=== PATIENT | male | born 1985 | race African-American/Black ===

== ENCOUNTER 2016-12-02 11:24 | Emergency (ER) | payer OTHER ==
[~2016-12-02] VITALS: Wt 103.0 kg
[~2016-12-02 11:24] MED LIST: CITA20TA11 PO; RISP1TAB3 PO
[2016-12-02] MEDS ORDERED: IBUP-1542 PO (15:01)
[2016-12-02] MEDS ORDERED: ACYC800T57 PO (15:01)
--- NOTE | 2016-12-02 15:08 | ERD ---
ER Documentation Chief Complaint Date/Time DATE: 12/02/16 TIME: 15:06 Chief Complaint mouth sores since last night. no distress. no fevers. HPI This is a 31-year-old male presents to the ER with mouth sores that occurred last night. Patient has gotten cold sores in the past however his lip is now swollen. Patient denies any difficulty in breathing, swallowing. He denies any rashes. He denies any fevers or chills. He denies any discharge from the area. ROS 12 point review of systems was done, all negative except per HPI. Medications Home Meds Active Scripts Ibuprofen* (Motrin*) 600 Mg Tab, 600 MG PO Q6, #30 TAB Prov:NAVI JADE 12/02/16 Acyclovir* (Zovirax*) 800 Mg Tablet, 800 MG PO 5 TIMES DAILY for 7 Days, TAB Prov:NAVI JADE 12/02/16 Citalopram Hydrobromide* (Celexa*) 20 Mg Tablet, 20 MG PO DAILY, #30 TAB Prov:MAREN DALEY. 05/31/15 Risperidone* (Risperidone*) 1 Mg Tablet, 1 MG PO DAILY, #20 TAB Prov:MAREN DALEY S. 05/31/15 PMhx/Soc History of Surgery: Yes (APPENDECTOMY. ) Anesthesia Reaction: No Hx Neurological Disorder: No Hx Respiratory Disorders: No Hx Cardiac Disorders: No Hx Psychiatric Problems: Yes (BIPOLAR? PT SAYS HE WANTS TO HURT HIMSELF. ) Hx Miscellaneous Medical Probl: No Hx Alcohol Use: Yes Hx Substance Use: Yes Hx Tobacco Use: Yes Physical Exam Vitals Vital Signs Date Time Temp Pulse Resp B/P Pulse Ox O2 Delivery O2 Flow Rate FiO2 12/02/16 11:53 98.8 75 20 126/72 98 Physical Exam GENERAL: The patient is well developed and appropriate for usual state of health , in no apparent distress. HEENT: Atraumatic. 2 vesicular lesion on the upper lip, swelling to the area. Uvular deviation no kissing tonsils. No eye swelling no tongue swelling. No discharge. CHEST: Clear to auscultation bilaterally. There are no rales, wheezes or rhonchi. HEART: Regular rate and rhythm. No murmurs, clicks, rubs or gallops. NEURO: Alert and oriented. Procedures/MDM This is a 31-year-old male presents to the ER with herpes outbreak on his lips. At this time patient will be sent home with acyclovir and with ibuprofen. I do not believe that he has an infection as there is no discharge and he is afebrile and well-appearing. Patient does not have any difficulty in breathing and is on any respiratory distress. His well-appearing. He is to follow-up with his primary care doctor within 1-2 days or return to ER sooner symptoms worsen. My medical decision making was shared with the patient he understands and agrees with plan. Departure Diagnosis: Primary Impression: HSV-1 (herpes simplex virus 1) infection Condition: Stable Patient Instructions: Herpes Labialis, Hsv: Type I Additional Instructions: Call your primary care doctor TOMORROW for an appointment during the next 1-2 days.See the doctor sooner or return here if your condition worsens before your appointment time. NAVI JADE Dec 02, 2016 15:08
== END 2016-12-02 15:03 | disposition home or self-care (01) ==
LOC: E/R 11:24
DX: B00.9 Herpesviral infection, unspecified (principal); Z87.891 Personal history of nicotine dependence
CPT/HCPCS: 99283

== ENCOUNTER 2016-12-18 12:09 | Emergency (ER) | payer OTHER ==
[~2016-12-18] VITALS: Wt 101.0 kg
[~2016-12-18 12:09] MED LIST changes: +ACYC800T57 PO; +IBUP-1542 PO
[2016-12-18 12:12] VITALS: Wt 101.0 kg
[2016-12-18] MEDS ORDERED: IBUP-1542 PO (12:58)
[2016-12-18] MEDS ORDERED: ACYC800T57 PO (12:58)
--- NOTE | 2016-12-18 13:06 | ERD ---
ER Documentation Chief Complaint Date/Time DATE: 12/18/16 TIME: 12:59 Chief Complaint MOUTH SORES X 1 DAY HPI This is a 31-year-old male who presents to the emergency department today for mouth sores that started today. Patient states he was seen here a couple weeks ago and was given medication but he only took 3 days worth and then stopped. States he took 4 of those pills today. Denies any fevers or chills. States he has had this in the past. ROS All systems reviewed and are negative except as per history of present illness. Medications Home Meds Active Scripts Ibuprofen* (Motrin*) 600 Mg Tab, 600 MG PO Q6, #30 TAB Prov:CLIFF HULL-C 12/18/16 Acyclovir* (Zovirax*) 800 Mg Tablet, 800 MG PO 5 TIMES DAILY for 7 Days, TAB Prov:CLIFF HULL PA-C 12/18/16 Ibuprofen* (Motrin*) 600 Mg Tab, 600 MG PO Q6, #30 TAB Prov:KALIENAVI C 12/02/16 Acyclovir* (Zovirax*) 800 Mg Tablet, 800 MG PO 5 TIMES DAILY for 7 Days, TAB Prov:KALIENAVI C 12/02/16 Citalopram Hydrobromide* (Celexa*) 20 Mg Tablet, 20 MG PO DAILY, #30 TAB Prov:MAREN DALEY S. 05/31/15 Risperidone* (Risperidone*) 1 Mg Tablet, 1 MG PO DAILY, #20 TAB Prov:MAREN DALEY S. 05/31/15 PMhx/Soc History of Surgery: Yes (APPENDECTOMY. ) Anesthesia Reaction: No Hx Neurological Disorder: No Hx Respiratory Disorders: No Hx Cardiac Disorders: No Hx Psychiatric Problems: Yes (BIPOLAR? PT SAYS HE WANTS TO HURT HIMSELF. ) Hx Miscellaneous Medical Probl: No Hx Alcohol Use: Yes Hx Substance Use: Yes Hx Tobacco Use: Yes Smoking Status: Current every day smoker Physical Exam Vitals Vital Signs Date Time Temp Pulse Resp B/P Pulse Ox O2 Delivery O2 Flow Rate FiO2 12/18/16 12:12 98.0 71 18 123/71 99 Physical Exam Const: No acute distress Head: Atraumatic Eyes: Normal Conjunctiva ENT: Normal External Ears, Nose mouth with evidence of small vesicles on the corner of the right upper lip and corner of the left lower lip.. No tonsillar exudate. No erythema. Neck: Full range of motion..~ No meningismus. Resp: Clear to auscultation bilaterally Cardio: Regular rate and rhythm, no murmurs Abd: Soft, non tender, non distended. Normal bowel sounds Skin: No petechiae or rashes Neur: Awake and alert Psych: Normal Mood and Affect Procedures/MDM This a 31-year-old male who presents to the emergency department today complaining of mouth sores that started this morning. Patient was seen here on December 02 and was given acyclovir and ibuprofen for likely HSV-1. Patient did not finish his medication course and started taking it again today. Patient also is no longer taking his bipolar medications as he did not like the way it made him feel. On physical exam patient does have some vesicular lesions on his upper and lower lip. Patient symptoms at this time was consistent with HSV-1. I have explained to the patient that I will give him a prescription for acyclovir however he needs to take the entire course. I instructed him not to stop taking it even if his symptoms improved. Patient was also instructed to follow- up with a primary care physician as he may benefit from prophylactic medication as he has been having these recent flares. Patient understood. Patient was also given a prescription for ibuprofen. Patient was also instructed to follow- up with his primary care physician for referral to psych so that his bipolar illness can be managed. Patient understood. Patient is afebrile and otherwise well-appearing. Low suspicion for sepsis, cellulitis, deep space infection, abscess At this time the patient is stable for discharge and outpatient management. Patient should follow up with their PCP in the next 1-2 days. They may return to the emergency department sooner for any persistent or worsening of symptoms. Patient understood and agreed with the plan. Departure Diagnosis: Primary Impression: Mouth sores Condition: Fair Patient Instructions: Herpes Labialis, Hsv: Type I Referrals: COMM[facility] CLINICS YOU HAVE RECEIVED A MEDICAL SCREENING EXAM AND THE RESULTS INDICATE THAT YOU DO NOT HAVE A CONDITION THAT REQUIRES URGENT TREATMENT IN THE EMERGENCY DEPARTMENT. FURTHER EVALUATION AND TREATMENT OF YOUR CONDITION CAN WAIT UNTIL YOU ARE SEEN IN YOUR DOCTORS OFFICE WITHIN THE NEXT 1-2 DAYS. IT IS YOUR RESPONSIBILITY TO MAKE AN APPOINTMENT FOR FOLOW-UP CARE. IF YOU HAVE A PRIMARY DOCTOR --you should call your primary doctor and schedule an appointment IF YOU DO NOT HAVE A PRIMARY DOCTOR YOU CAN CALL OUR PHYSICIAN REFERRAL HOTLINE AT IF YOU CAN NOT AFFORD TO SEE A PHYSICIAN YOU CAN CHOSE FROM THE FOLLOWING [facility] [address] [facility] [address] [facility] [facility] [address] [facility] [address] [facility]. [facility] [address] [facility]. [facility]. [address] Additional Instructions: Call your primary care doctor TOMORROW for an appointment during the next 1-2 days.See the doctor sooner or return here if your condition worsens before your appointment time. Take acyclovir as prescribed and follow up with your primary care physician about taking medication prophylactically. Take the entire course. Take Motrin or Tylenol for pain CLIFF HULL PA-C Dec 18, 2016 13:06
== END 2016-12-18 13:06 | disposition home or self-care (01) ==
LOC: FTE 12:09
DX: K13.79 Other lesions of oral mucosa (principal); F17.210 Nicotine dependence, cigarettes, uncomplicated
CPT/HCPCS: 99283

== ENCOUNTER 2017-06-14 01:31 | Emergency (ER) | payer OTHER ==
[~2017-06-14] VITALS: Ht 182.9 cm; Wt 91.0 kg
[2017-06-14 01:41] VITALS: Ht 182.9 cm; Wt 91.0 kg
[2017-06-14] MEDS ORDERED: CEPH-443 PO (03:57)
[2017-06-14] MEDS ORDERED: ACYC800T57 PO (03:57)
[2017-06-14] MEDS ORDERED: IBUP-1542 PO (03:57)
--- NOTE | 2017-06-14 04:15 | ERD ---
ER Documentation Chief Complaint Date/Time DATE: 06/14/17 TIME: 04:10 Chief Complaint pt has cold sore x 3 hours, R knee pain and want rapid hiv test HPI 32-year-old male presents here in emergency department for a sore on the upper lip started tonight. Patient is quite of pain sharp pain 4/10 scale, is worse upon touching the area. Patient is also complaining of pain and some discharge and redness on abrasion of the right knee, injured and fell on the right knee one week ago, prescription the right knee, now it has an abrasion, is complaining of some pain, burning pain 4/10 scale, accompanied with redness around the area. Patient is able to move the joint of the right knee without any restriction. Patient did not take any medications for pain. Patient was inquired regarding HIV testing. Patient denies any new sexual partner, denies any genital issues. Patient denies any penile discharge. ROS All systems reviewed and are negative except as per history of present illness. Medications Home Meds Active Scripts Ibuprofen* (Motrin*) 600 Mg Tab, 600 MG PO Q6H Y for PAIN AND OR ELEVATED TEMP, #30 TAB Prov:KATINA FERNANDEZ NP 06/14/17 Cephalexin* (Keflex*) 500 Mg Capsule, 500 MG PO QID for 10 Days, CAP Prov:KATINA FERNANDEZ NP 06/14/17 Acyclovir* (Zovirax*) 800 Mg Tablet, 800 MG PO 5 TIMES DAILY for 7 Days, TAB Prov:KATINA FERNANDEZ NP 06/14/17 Ibuprofen* (Motrin*) 600 Mg Tab, 600 MG PO Q6, #30 TAB Prov:CLIFF HULL PA-C 12/18/16 Acyclovir* (Zovirax*) 800 Mg Tablet, 800 MG PO 5 TIMES DAILY for 7 Days, TAB Prov:CLIFF HULLC 12/18/16 Ibuprofen* (Motrin*) 600 Mg Tab, 600 MG PO Q6, #30 TAB Prov:KALIENAVI LITTLEJOHN C 12/02/16 Acyclovir* (Zovirax*) 800 Mg Tablet, 800 MG PO 5 TIMES DAILY for 7 Days, TAB Prov:KALIENAVI C 12/02/16 Citalopram Hydrobromide* (Celexa*) 20 Mg Tablet, 20 MG PO DAILY, #30 TAB Prov:MAREN DALEY. 05/31/15 Risperidone* (Risperidone*) 1 Mg Tablet, 1 MG PO DAILY, #20 TAB Prov:MAREN DALEY. 05/31/15 Allergies Allergies: Coded Allergies: metoclopramide (Verified Allergy, Unknown, neck spasms, 06/14/17) PMhx/Soc History of Surgery: Yes (APPENDECTOMY. ) Anesthesia Reaction: No Hx Neurological Disorder: No Hx Respiratory Disorders: No Hx Cardiac Disorders: No Hx Psychiatric Problems: Yes (BIPOLAR? PT SAYS HE WANTS TO HURT HIMSELF. ) Hx Miscellaneous Medical Probl: No Hx Alcohol Use: Yes Hx Substance Use: Yes Hx Tobacco Use: Yes FmHx Family History: No coronary disease, No diabetes, No other Physical Exam Vitals Vital Signs Date Time Temp Pulse Resp B/P Pulse Ox O2 Delivery O2 Flow Rate FiO2 06/14/17 01:41 98.3 74 16 136/88 96 Physical Exam GENERAL: The patient is well developed and appropriate for usual state of health, in no apparent distress. HEENT: Atraumatic. Ears: Normal tympanic membrane, no erythema or bulging. No ear canal swelling. No ear discharge. Nose: normal nasal turbinates, no erythema or swelling. Normal nasal discharge. Throat: oropharynx clear. No tonsillar swelling or tonsillar exudates. No lymphadenopathy.noted upper lip sore CHEST: Clear to auscultation bilaterally. There are no rales, wheezes or rhonchi. HEART: Regular rate and rhythm. No murmurs, clicks, rubs or gallops. No S3 or S4. ABDOMEN: Soft, nontender and nondistended. Good bowel sounds. No rebound or guarding. No gross peritonitis. No gross organomegaly or masses. No Vargas sign or McBurney point tenderness. BACK: No midline or flank tenderness. EXTREMITIES: Equal pulses bilaterally. There is no peripheral clubbing, cyanosis or edema. No focal swelling or erythema. Full range of motion. Grossly neurovascularly intact. NEURO: Alert and oriented. Cranial nerves 2-12 intact. Motor strength in all 4 extremities with 5/5 strength. Sensation grossly intact. Normal speech and gait. SKIN: abrasion noted on the right knee with some redness surrounding the area. There is no apparent rash or petechia. The skin is warm and dry. HEMATOLOGIC AND LYMPHATIC: There is no evidence of excessive bruising or lymphedema. No gross cervical, axillary, or inguinal lymphadenopathy. Procedures/MDM Medical decision making: Patient has a right infected knee abrasion. Patient does not have any symptoms of any abscess, patient is able to move the joint without any restrictions. X-rays of affected area not indicated at this time. Patient also has an upper lip sore/ulcer, most likely can be herpes, can be viral. No suspicion for any acute bacterial infection at this time. no symptoms his at this time. Patient was given for Keflex to help with the infection in the knee abrasion, acyclovir for the lip ulcer, patient was given ibuprofen for pain, patient was given resources.Patient want to have HIV testing. Patient was advised to return to emergency department for worsening symptoms. Disposition: Home. Stable. Departure Diagnosis: Primary Impression: Infected abrasion Additional Impression: Lip ulcer Condition: Stable Patient Instructions: Wound Care Referrals: [facility] YOU HAVE RECEIVED A MEDICAL SCREENING EXAM AND THE RESULTS INDICATE THAT YOU DO NOT HAVE A CONDITION THAT REQUIRES URGENT TREATMENT IN THE EMERGENCY DEPARTMENT. FURTHER EVALUATION AND TREATMENT OF YOUR CONDITION CAN WAIT UNTIL YOU ARE SEEN IN YOUR DOCTORS OFFICE WITHIN THE NEXT 1-2 DAYS. IT IS YOUR RESPONSIBILITY TO MAKE AN APPOINTMENT FOR FOLOW-UP CARE. IF YOU HAVE A PRIMARY DOCTOR --you should call your primary doctor and schedule an appointment IF YOU DO NOT HAVE A PRIMARY DOCTOR YOU CAN CALL OUR PHYSICIAN REFERRAL HOTLINE AT IF YOU CAN NOT AFFORD TO SEE A PHYSICIAN YOU CAN CHOSE FROM THE FOLLOWING [facility] CLINICS [facility] [address] [facility] [address] [facility] [address] [facility] [address] [facility] [address] [facility]. [facility]. [address] [facility]. [facility] YOU HAVE RECEIVED A MEDICAL SCREENING EXAM AND THE RESULTS INDICATE THAT YOU DO NOT HAVE A CONDITION THAT REQUIRES URGENT TREATMENT IN THE EMERGENCY DEPARTMENT. FURTHER EVALUATION AND TREATMENT OF YOUR CONDITION CAN WAIT UNTIL YOU ARE SEEN IN YOUR DOCTORS OFFICE WITHIN THE NEXT 1-2 DAYS. IT IS YOUR RESPONSIBILITY TO MAKE AN APPOINTMENT FOR FOLOW-UP CARE. IF YOU HAVE A PRIMARY DOCTOR --you should call your primary doctor and schedule and appointment IF YOU DO NOT HAVE A PRIMARY DOCTOR YOU CAN CALL OUR PHYSICIAN REFERRAL HOTLINE AT . IF YOU CAN NOT AFFORD TO SEE A PHYSICIAN YOU CAN CHOSE FROM THE FOLLOWING [facility] IN[facility]: [facility] [address] [place] [address] [facility] [address] [place] [address] [facility] [address] [place] [address] KATINA FERNANDEZ NP Jun 14, 2017 04:15
[2017-06-14 04:26] VITALS: BP 134/83; PULSE 90; RESP 15; TEMP 98.3
== END 2017-06-14 04:27 | disposition home or self-care (01) ==
LOC: FTE 01:31
DX: S80.211A Abrasion, right knee, initial encounter (principal); K13.0 Diseases of lips; W18.39XA Other fall on same level, initial encounter; Y92.9 Unspecified place or not applicable; Z87.891 Personal history of nicotine dependence
CPT/HCPCS: 99284

== ENCOUNTER 2017-09-11 06:42 | Emergency (ER) | payer OTHER ==
[~2017-09-11] VITALS: Ht 175.3 cm; Wt 89.3 kg
[~2017-09-11 06:42] MED LIST changes: +CEPH-443 PO
[2017-09-11 06:46] VITALS: Ht 175.3 cm; Wt 89.3 kg
--- NOTE | 2017-09-11 07:32 | ERD ---
ER Documentation Chief Complaint Chief Complaint upper lip sore x 2 days HPI 32-year-old male with a history of bipolar disease and recurrent herpes labialis presents to the ED complaining of 2 day history of a painful sore on his upper lip which is getting worse. No intraoral lesions. Otherwise asymptomatic. Denies chest pain, shortness of breath, abdominal pain, nausea vomiting, odynophagia or rhinorrhea. No anxiety, depression, hallucinations, suicidal or homicidal ideations. No fevers or chills. No history of HIV. ROS All systems reviewed and are negative except as per history of present illness. Medications Home Meds Active Scripts Valacyclovir HCl (Valtrex) 1,000 Mg Tablet, 2000 MG PO Q12 for 1 Day, #4 TAB Prov:AMANDA HARDEN MD 09/11/17 Ibuprofen* (Motrin*) 800 Mg Tab, 800 MG PO Q8H Y for PAIN AND OR ELEVATED TEMP, #20 TAB Prov:AMANDA HARDEN MD 09/11/17 Ibuprofen* (Motrin*) 600 Mg Tab, 600 MG PO Q6H Y for PAIN AND OR ELEVATED TEMP, #30 TAB Prov:KATINA FERNANDEZ NP 06/14/17 Cephalexin* (Keflex*) 500 Mg Capsule, 500 MG PO QID for 10 Days, CAP Prov:KATINA FERNANDEZ NP 06/14/17 Acyclovir* (Zovirax*) 800 Mg Tablet, 800 MG PO 5 TIMES DAILY for 7 Days, TAB Prov:KATINA FERNANDEZ NP 06/14/17 Ibuprofen* (Motrin*) 600 Mg Tab, 600 MG PO Q6, #30 TAB Prov:CLIFF HULL PA-C 12/18/16 Acyclovir* (Zovirax*) 800 Mg Tablet, 800 MG PO 5 TIMES DAILY for 7 Days, TAB Prov:CLIFF HULLC 12/18/16 Ibuprofen* (Motrin*) 600 Mg Tab, 600 MG PO Q6, #30 TAB Prov:KALIENAVI LITTLEJOHN C 12/02/16 Acyclovir* (Zovirax*) 800 Mg Tablet, 800 MG PO 5 TIMES DAILY for 7 Days, TAB Prov:KALIENAVI C 12/02/16 Citalopram Hydrobromide* (Celexa*) 20 Mg Tablet, 20 MG PO DAILY, #30 TAB Prov:MAREN DALEY. 05/31/15 Risperidone* (Risperidone*) 1 Mg Tablet, 1 MG PO DAILY, #20 TAB Prov:MAREN DALEY. 05/31/15 Allergies Allergies: Coded Allergies: metoclopramide (Verified Allergy, Unknown, neck spasms, 06/14/17) PMhx/Soc Reviewed in chart. As per HPI. History of Surgery: Yes (APPENDECTOMY. ) Anesthesia Reaction: No Hx Neurological Disorder: No Hx Respiratory Disorders: No Hx Cardiac Disorders: No Hx Psychiatric Problems: Yes (BIPOLAR ) Hx Miscellaneous Medical Probl: No Hx Alcohol Use: Yes Hx Substance Use: Yes Hx Tobacco Use: Yes FmHx No family history relevant to presenting complaint Physical Exam Vitals Vital Signs Date Time Temp Pulse Resp B/P Pulse Ox O2 Delivery O2 Flow Rate FiO2 09/11/17 06:46 98.7 115 18 129/80 98 Physical Exam Const: Alert, mild distress Head: Atraumatic Eyes: Normal Conjunctiva ENT: Vesicles and open sore of the upper lip. No intraoral lesions. Pharynx is clear without erythema or exudate. Neck: Full range of motion. Nontender. No lymphadenopathy. Resp: Clear to auscultation bilaterally Cardio: Regular rate and rhythm, no murmurs Abd: Soft, non tender, non distended. Normal bowel sounds Skin: No petechiae or rashes Back: No midline or flank tenderness Ext: No cyanosis, or edema Neur: Awake and alert Psych: Normal Mood and Affect. Denies hallucinations, suicidal or homicidal ideations. Results 24 hrs Current Medications Medications (Trade) Dose Ordered Sig/Jena Route PRN Reason Start Time Stop Time Status Last Admin Dose Admin Ibuprofen (Motrin) 800 mg ONCE ONCE PO 09/11/17 08:00 09/11/17 08:01 DC 09/11/17 07:39 Procedures/MDM DOCUMENTS REVIEWED: ED nurse, prior ED, prior records MEDICAL DECISION MAKIN-year-old male with a history of bipolar disease and recurrent herpes labialis presents to the ED complaining of 2 day history of a painful sore on his upper lip which is getting worse. Patient presents with recurrent HSV-1 labialis. Patient reports that Valtrex usually works better for him than acyclovir. No evidence of secondary infection or pneumonia. Stable bipolar disease. Stable for discharge of precautionary instructions and outpatient follow-up as counseled. Counseled patient regarding diagnostic workup, diagnosis and need for followup. Understands to return to ED if symptoms recur, worsen or any other concerns. Departure Diagnosis: Primary Impression: Recurrent herpes labialis Additional Impression: Bipolar disease, chronic Condition: Stable AMANDA HARDEN MD Sep 11, 2017 07:32
[2017-09-11] MEDS ORDERED: IBUP800T25 PO (07:34)
[2017-09-11] MEDS ORDERED: VALA10004 PO (07:35)
[2017-09-11] MEDS ORDERED: IBUPROFEN 800 MG TAB PO ONE (08:00)
[2017-09-11 08:02] VITALS: PULSE 102
== END 2017-09-11 08:02 | disposition home or self-care (01) ==
LOC: E/R 06:42
DX: B00.1 Herpesviral vesicular dermatitis (principal); F31.9 Bipolar disorder, unspecified; Z87.891 Personal history of nicotine dependence
CPT/HCPCS: Z7502; Z7610; 99283

== ENCOUNTER 2018-07-20 01:07 | Emergency (ER) | END 2018-07-20 03:00 | disposition home or self-care (01) ==